=== PATIENT | male | born 1950 | race African-American/Black ===

== ENCOUNTER 2018-04-21 12:57 | Inpatient (IN) | payer MEDICARE, MEDICAID ==
[~2018-04-21] VITALS: Ht 188 cm; Wt 98.4 kg
[~2018-04-21 12:57] MED LIST: CLON0.1T PO; CLON0.2T PO; LOSA50TA20 PO; METF-414 PO; NIFE90TA2 PO
[2018-04-21] MEDS ORDERED: HYDR12.529 MT (13:18)
[2018-04-21] MEDS ORDERED: HYDR-4133 MT (13:18)
[2018-04-21] MEDS ORDERED: ATOR20TA65 MT (13:18)
[2018-04-21] MEDS ORDERED: benazepril (13:18)
[2018-04-21] MEDS ORDERED: ASPI-1159 MT (13:18)
[2018-04-21] MEDS ORDERED: ADENOSINE 3 MG/ML 2ML VIAL IV ONE (13:42)
[2018-04-21] MEDS ORDERED: DILTIAZEM HCL 5MG/ML 5ML VIAL IV ONE ×2 (13:55→14:00)
[2018-04-21] MEDS ORDERED: SODIUM CHLORIDE 0.9% 1,000 ML IV ONE (13:57)
[2018-04-21] MEDS ORDERED: ASPIRIN 325MG EC TABLET PO ONE (14:00)
[2018-04-21 15:00] LABS: BASOPHILS % 0.9 % (0.0-2.0); EOSINOPHILS % 0.3 % (0.0-5.0); HEMATOCRIT. 43.5 % (42.0-52.0); HEMOGLOBIN. 14.4 g/dL (14.0-18.0); LYMPHOCYTES % 35.6 % (20.0-50.0); MEAN CORPUSCULAR VOLUME 90.6 fL (80.0-94.0); MEAN PLATELET VOLUME 10.4 fl (7.4-10.4); MONOCYTES % 4.7 % (2.0-8.0); NEUTROPHILS % 58.5 % (40.0-76.0); PLATELET 436 x1000/uL (130-400); RED CELL DISTRIBUTION WIDTH 14.9 % (11.6-14.6)
[2018-04-21 15:06] LABS: INR 1.2; PROTHROMBIN TIME 11.7 sec (9.1-11.1)
[2018-04-21 15:07] LABS: CHLORIDE 102 mEq/L (98-107)
[2018-04-21 15:11] LABS: ETHANOL BLOOD < 10 mg/dL
[2018-04-21] MEDS ORDERED: KCL 10MEQ/50ML PREMIX 50 ML IV ONE (15:30)
[2018-04-21] MEDS ORDERED: POTASSIUM CHLORIDE 20MEQ TABLET SR PO ONE (15:30)
[2018-04-21] MEDS ORDERED: ACETAMINOPHEN 325MG TABLET PO PRN (17:00)
[2018-04-21] MEDS ORDERED: DOCUSATE SODIUM 100MG CAPSULE PO PRN (17:00)
[2018-04-21] MEDS ORDERED: IPRATROPIUM/ALBUTEROL 0.5-3(2.5)MG/3ML NEB INH PRN (17:00)
[2018-04-21] MEDS ORDERED: MAGNESIUM/ALUMINUM HYDROXIDE/SIMETHICONE 30ML UDC PO PRN (17:00)
[2018-04-21] MEDS ORDERED: HYDROCODONE/ACETAMINOPHEN 5/325MG TABLET PO PRN (17:00)
[2018-04-21] MEDS ORDERED: GUAIFENESIN 200MG/10ML SUGAR FREE UDC PO PRN (17:00)
[2018-04-21] MEDS ORDERED: ONDANSETRON HCL 4MG/2ML INJ IV PRN (17:00)
[2018-04-21 18:09] LABS: PHOSPHORUS 3.3 mg/dL (2.5-4.9)
[2018-04-21 18:51] LABS: CLARITY URINE CLEAR (CLEAR); COLOR URINE YELLOW (YELLOW); KETONES URINE NEGATIVE (NEGATIVE); LEUKOCYTE ESTERASE URINE NEGATIVE (NEGATIVE); NITRITE URINE NEGATIVE (NEGATIVE); OCCULT BLOOD URINE TRACE (NEGATIVE); PROTEIN URINE TRACE (NEGATIVE); SPECIFIC GRAVITY URINE 1.017 (1.005-1.030)
[2018-04-21 19:04] LABS: *AMPHETAMINES SCREEN URINE NEGATIVE (NEGATIVE); *BARBITURATES SCREEN URINE NEGATIVE (NEGATIVE); *BENZODIAZEPINES SCREEN URINE NEGATIVE (NEGATIVE); *COCAINE SCREEN URINE NEGATIVE (NEGATIVE); METHADONE URINE SCREEN NEGATIVE (NEGATIVE); OPIATES URINE SCREEN NEGATIVE (NEGATIVE)
[2018-04-21 19:05] LABS: CANNABINOID URINE SCREEN PRESUMTIVE POSITIVE (NEGATIVE); PHENCYCLIDINE URINE SCREEN NEGATIVE (NEGATIVE)
[2018-04-21] MEDS: CLONIDINE 0.1MG TABLET PO PRN (19:07)
[2018-04-22] VITALS (11 sets, daily range): BP systolic 161–190; BP diastolic 91–110
[2018-04-22] MEDS: DILTIAZEM HCL 60MG TABLET PO SCH ×4 (01:05→17:33)
[2018-04-22] MEDS: CLONIDINE 0.1MG TABLET PO PRN ×3 (01:08→12:12)
[2018-04-22 06:53] LABS: BASOPHILS % 1.1 % (0.0-2.0); EOSINOPHILS % 2.2 % (0.0-5.0); HEMATOCRIT. 40.5 % (42.0-52.0); HEMOGLOBIN. 13.2 g/dL (14.0-18.0); LYMPHOCYTES % 39.7 % (20.0-50.0); MEAN CORPUSCULAR HEMOGLOBIN 29.5 pg (28.0-32.0); MEAN CORPUSCULAR VOLUME 90.1 fL (80.0-94.0); MEAN PLATELET VOLUME 9.8 fl (7.4-10.4); MONOCYTES % 5.7 % (2.0-8.0); NEUTROPHILS % 51.3 % (40.0-76.0); PLATELET 347 x1000/uL (130-400); RED BLOOD CELL COUNT 4.49 mill/uL (4.7-6.1); RED CELL DISTRIBUTION WIDTH 14.8 % (11.6-14.6)
[2018-04-22 07:10] LABS: CHLORIDE 103 mEq/L (98-107)
[2018-04-22 07:22] LABS: CREATINE KINASE 147 IU/L (39-308); HDL CHOLESTEROL 35 mg/dL (40-59)
[2018-04-22 07:41] LABS: LDL CHOLESTEROL 91 mg/dL (5-100)
[2018-04-22] MEDS: ASPIRIN 81MG EC TABLET PO SCH (08:43)
[2018-04-22] MEDS ORDERED: LOSARTAN POTASSIUM 50 MG TABLET PO SCH (09:00)
[2018-04-22] MEDS ORDERED: POTASSIUM CHLORIDE 20MEQ TABLET SR PO NR (09:45)
[2018-04-22] MEDS ORDERED: POTASSIUM CHLORIDE INJ 40 MEQ in DEXT 5% WATER 250 ML IV NR (10:30)
[2018-04-22] MEDS ORDERED: MAGNESIUM 2 G PREMIX 50 ML IV NR (12:00)
[2018-04-22] MEDS: CLONIDINE 0.2MG TABLET PO SCH ×2 (16:00→22:02)
[2018-04-22] MEDS ORDERED: DEXTROSE 50% WATER 50ML SYRINGE IV PRN (17:30)
[2018-04-22] MEDS: LOSARTAN POTASSIUM 50 MG TABLET PO SCH (17:33)
[2018-04-22] MEDS: BLOOD SUGAR DIAGNOSTIC STRIP TEST SCH ×2 (17:40→21:00)
[2018-04-22] MEDS: INSULIN LISPRO 100 UNITS/ML SUBCUT SCH ×2 (17:53→21:00)
[2018-04-22] MEDS: ATORVASTATIN CALCIUM 10MG TABLET PO SCH (22:01)
[2018-04-23] VITALS: BP 139/69
[2018-04-23] MEDS: DILTIAZEM HCL 60MG TABLET PO SCH ×4 (00:18→17:28)
[2018-04-23 04:00] VITALS: BP 163/86
[2018-04-23] MEDS: CLONIDINE 0.2MG TABLET PO SCH ×3 (06:05→21:40)
[2018-04-23] MEDS: BLOOD SUGAR DIAGNOSTIC STRIP TEST SCH ×4 (06:19→21:41)
[2018-04-23 07:16] LABS: CHLORIDE 105 mEq/L (98-107)
[2018-04-23 07:18] LABS: EOSINOPHILS % 1.8 % (0.0-5.0); HEMATOCRIT. 41.8 % (42.0-52.0); HEMOGLOBIN. 13.7 g/dL (14.0-18.0); LYMPHOCYTES % 23.8 % (20.0-50.0); MEAN CORPUSCULAR HEMOGLOBIN 29.9 pg (28.0-32.0); MEAN CORPUSCULAR VOLUME 90.9 fL (80.0-94.0); NEUTROPHILS % 68.4 % (40.0-76.0); PLATELET 325 x1000/uL (130-400); RED BLOOD CELL COUNT 4.59 mill/uL (4.7-6.1); RED CELL DISTRIBUTION WIDTH 15.1 % (11.6-14.6)
[2018-04-23 08:00] VITALS: BP 167/97
[2018-04-23] MEDS: INSULIN LISPRO 100 UNITS/ML SUBCUT SCH ×4 (08:10→21:00)
[2018-04-23] MEDS: LOSARTAN POTASSIUM 50 MG TABLET PO SCH ×2 (09:01→21:40)
[2018-04-23] MEDS: ASPIRIN 81MG EC TABLET PO SCH (09:01)
[2018-04-23] MEDS ORDERED: POTASSIUM CHLORIDE 20MEQ TABLET SR PO NR (10:45)
[2018-04-23] MEDS ORDERED: REGADENOSON 0.4 MG/5 ML IV ONE (11:00)
[2018-04-23 12:00] VITALS: BP 146/86
[2018-04-23 16:00] VITALS: BP 151/71
[2018-04-23] MEDS: HYDRALAZINE HCL 25MG TABLET PO SCH ×2 (16:37→21:41)
[2018-04-23 20:00] VITALS: BP 174/97
[2018-04-23] MEDS: ATORVASTATIN CALCIUM 10MG TABLET PO SCH (21:40)
[2018-04-24 00:11] VITALS: BP 170/95
[2018-04-24] MEDS: DILTIAZEM HCL 60MG TABLET PO SCH ×5 (00:14→23:10)
[2018-04-24 04:00] VITALS: BP 187/89
[2018-04-24] MEDS: HYDRALAZINE HCL 25MG TABLET PO SCH ×3 (06:18→21:07)
[2018-04-24] MEDS: CLONIDINE 0.2MG TABLET PO SCH ×3 (06:18→21:06)
[2018-04-24] MEDS: BLOOD SUGAR DIAGNOSTIC STRIP TEST SCH ×4 (06:19→21:45)
[2018-04-24 06:44] LABS: BASOPHILS % 1.1 % (0.0-2.0); EOSINOPHILS % 2.5 % (0.0-5.0); HEMOGLOBIN. 13.7 g/dL (14.0-18.0); LYMPHOCYTES % 32.4 % (20.0-50.0); MEAN CORPUSCULAR HEMOGLOBIN 30.1 pg (28.0-32.0); MEAN CORPUSCULAR VOLUME 90.3 fL (80.0-94.0); MEAN PLATELET VOLUME 10.1 fl (7.4-10.4); MONOCYTES % 4.9 % (2.0-8.0); NEUTROPHILS % 59.1 % (40.0-76.0); PLATELET 345 x1000/uL (130-400); RED BLOOD CELL COUNT 4.54 mill/uL (4.7-6.1); RED CELL DISTRIBUTION WIDTH 14.8 % (11.6-14.6)
[2018-04-24 07:28] LABS: CHLORIDE 105 mEq/L (98-107)
[2018-04-24] MEDS: INSULIN LISPRO 100 UNITS/ML SUBCUT SCH ×4 (07:58→21:00)
[2018-04-24 08:00] VITALS: BP 160/95
[2018-04-24] MEDS ORDERED: POTASSIUM CHLORIDE 20MEQ TABLET SR PO SCH (08:45)
[2018-04-24] MEDS: LOSARTAN POTASSIUM 50 MG TABLET PO SCH ×2 (09:08→21:06)
[2018-04-24] MEDS: ASPIRIN 81MG EC TABLET PO SCH (09:08)
[2018-04-24] MEDS: NEBIVOLOL HCL 5 MG TABLET PO SCH (09:08)
[2018-04-24 12:00] VITALS: BP 168/99
[2018-04-24 16:00] VITALS: BP 133/85
[2018-04-24 20:00] VITALS: BP 165/100
[2018-04-24] MEDS: ATORVASTATIN CALCIUM 10MG TABLET PO SCH (21:06)
[2018-04-25] VITALS: BP 173/101
[2018-04-25] MEDS: CLONIDINE 0.1MG TABLET PO PRN (01:10)
[2018-04-25 04:00] VITALS: BP 175/106
[2018-04-25] MEDS: CLONIDINE 0.2MG TABLET PO SCH ×2 (05:06→13:14)
[2018-04-25] MEDS: DILTIAZEM HCL 60MG TABLET PO SCH ×2 (05:07→12:52)
[2018-04-25] MEDS: HYDRALAZINE HCL 25MG TABLET PO SCH ×2 (05:07→13:14)
[2018-04-25] MEDS: INSULIN LISPRO 100 UNITS/ML SUBCUT SCH ×2 (05:18→12:52)
[2018-04-25] MEDS: BLOOD SUGAR DIAGNOSTIC STRIP TEST SCH ×2 (05:18→12:40)
[2018-04-25 06:43] LABS: BASOPHILS % 1.1 % (0.0-2.0); EOSINOPHILS % 3.3 % (0.0-5.0); HEMATOCRIT. 39.6 % (42.0-52.0); HEMOGLOBIN. 13.2 g/dL (14.0-18.0); LYMPHOCYTES % 36.2 % (20.0-50.0); MEAN CORPUSCULAR HEMOGLOBIN 30.1 pg (28.0-32.0); MEAN CORPUSCULAR VOLUME 90.1 fL (80.0-94.0); MONOCYTES % 4.9 % (2.0-8.0); NEUTROPHILS % 54.5 % (40.0-76.0); PLATELET 342 x1000/uL (130-400); RED BLOOD CELL COUNT 4.39 mill/uL (4.7-6.1); RED CELL DISTRIBUTION WIDTH 15.1 % (11.6-14.6)
[2018-04-25 07:00] LABS: CHLORIDE 106 mEq/L (98-107)
[2018-04-25 08:00] VITALS: BP 170/111
[2018-04-25] MEDS ORDERED: POTASSIUM CHLORIDE 20MEQ TABLET SR PO SCH (08:00)
[2018-04-25] MEDS: LOSARTAN POTASSIUM 50 MG TABLET PO SCH (08:19)
[2018-04-25] MEDS: ASPIRIN 81MG EC TABLET PO SCH (08:20)
[2018-04-25] MEDS: NEBIVOLOL HCL 5 MG TABLET PO SCH (08:20)
[2018-04-25] MEDS ORDERED: LORAZEPAM 2MG/ML CPJ IV PRN (11:30)
[2018-04-25 12:00] VITALS: BP 172/99
[2018-04-25] MEDS ORDERED: CLON0.2T12 PO (15:41)
[2018-04-25] MEDS ORDERED: DILT60TA35 PO (15:41)
[2018-04-25] MEDS ORDERED: HYDR-4134 PO (15:41)
[2018-04-25] MEDS ORDERED: LOSA50TA3 PO (15:41)
[2018-04-25] MEDS ORDERED: NEBI5TAB3 PO (15:41)
[2018-04-25 16:00] VITALS: BP 153/88
[2018-04-25 17:56] VITALS: BP 153/88
== END 2018-04-25 18:31 | disposition home or self-care (01) | DRG 308 ==
LOC: ER 12:57 → 7WST 15:53 → EDBEDREQ 16:06 → ENRESERV 22:45
PROVIDERS: ADMIT Internal Medicine; ATTEND Internal Medicine
DX: I47.1 Supraventricular tachycardia (principal); N17.0 Acute kidney failure with tubular necrosis; I13.0 Hypertensive heart and chronic kidney disease with heart failure and stage 1 through stage 4 chronic kidney disease, or unspecified chronic kidney disease; E78.5 Hyperlipidemia, unspecified; Z79.4 Long term (current) use of insulin; E87.6 Hypokalemia; E78.00 Pure hypercholesterolemia, unspecified; H91.90 Unspecified hearing loss, unspecified ear; Z82.49 Family history of ischemic heart disease and other diseases of the circulatory system; Z86.73 Personal history of transient ischemic attack (TIA), and cerebral infarction without residual deficits; N18.9 Chronic kidney disease, unspecified; I50.9 Heart failure, unspecified; E11.22 Type 2 diabetes mellitus with diabetic chronic kidney disease; Z53.20 Procedure and treatment not carried out because of patient's decision for unspecified reasons; Z79.82 Long term (current) use of aspirin; Z79.899 Other long term (current) drug therapy
CPT/HCPCS: 36415; 71045; 80048; 80061; 80305; 80320; 82550; 82962; 83036; 83605; 83735; 83880; 84100; 84443; 84484; 93005; 93306; 93970; 99291; J0153; J3475; J3480; J3490; J7030; J7050; J7060; G0480

== ENCOUNTER 2018-07-05 12:48 | Inpatient (IN) | payer MEDICARE, MEDICAID ==
[~2018-07-05] VITALS: Ht 188 cm; Wt 97.5 kg
[~2018-07-05 12:48] MED LIST changes: +ASPI-1159 MT; +ATOR20TA65 MT; -CLON0.1T PO; -CLON0.2T PO; +CLON0.2T12 PO; +DILT60TA35 PO; +HYDR-4134 PO; -LOSA50TA20 PO; +LOSA50TA3 PO; +NEBI5TAB3 PO; -NIFE90TA2 PO
[2018-07-05 14:08] LABS: BASOPHILS % 0.9 % (0.0-2.0); EOSINOPHILS % 1.2 % (0.0-5.0); HEMATOCRIT. 42.4 % (42.0-52.0); HEMOGLOBIN. 14.1 g/dL (14.0-18.0); LYMPHOCYTES % 39.1 % (20.0-50.0); MEAN PLATELET VOLUME 9.4 fl (7.4-10.4); MONOCYTES % 4.9 % (2.0-8.0); NEUTROPHILS % 53.9 % (40.0-76.0); PLATELET 285 x1000/uL (130-400); RED BLOOD CELL COUNT 4.71 mill/uL (4.7-6.1); RED CELL DISTRIBUTION WIDTH 15.1 % (11.6-14.6)
[2018-07-05 14:36] LABS: CHLORIDE 106 mEq/L (98-107)
[2018-07-05] MEDS ORDERED: HYDRALAZINE 20MG/ML VIAL IV ONE (15:15)
[2018-07-05] MEDS ORDERED: ASPIRIN 325MG EC TABLET PO ONE (16:00)
[2018-07-05] MEDS ORDERED: GUAIFENESIN 200MG/10ML SUGAR FREE UDC PO PRN (17:00)
[2018-07-05] MEDS ORDERED: MAGNESIUM/ALUMINUM HYDROXIDE/SIMETHICONE 30ML UDC PO PRN (17:00)
[2018-07-05] MEDS ORDERED: CLONIDINE 0.1MG TABLET PO PRN (17:00)
[2018-07-05] MEDS ORDERED: ACETAMINOPHEN 325MG TABLET PO PRN (17:00)
[2018-07-05] MEDS ORDERED: HALOPERIDOL LACTATE 5MG/ML VIAL IM PRN (17:00)
[2018-07-05] MEDS ORDERED: NITROGLYCERIN 0.4MG TABLET SL SL PRN (17:00)
[2018-07-05] MEDS ORDERED: TRAMADOL 50MG TABLET PO PRN (17:00)
[2018-07-05] MEDS ORDERED: DOCUSATE SODIUM 100MG CAPSULE PO PRN (17:00)
[2018-07-05] MEDS ORDERED: ONDANSETRON HCL 4MG/2ML INJ IV PRN (17:00)
[2018-07-05] MEDS ORDERED: IPRATROPIUM/ALBUTEROL 0.5-3(2.5)MG/3ML NEB INH PRN (17:00)
[2018-07-05] MEDS ORDERED: LORAZEPAM 0.5MG TABLET PO PRN (17:00)
[2018-07-05 19:00] VITALS: BP 216/103
[2018-07-05 19:30] VITALS: BP 211/100
[2018-07-05] MEDS: LOSARTAN POTASSIUM 100 MG TABLET PO SCH (19:46)
[2018-07-05 20:00] VITALS: BP 211/100
[2018-07-05] MEDS ORDERED: POTASSIUM CHLORIDE 20MEQ TABLET SR PO NR (20:00)
[2018-07-05] MEDS ORDERED: ENOXAPARIN 40MG/0.4ML SYR SUBCUT SCH (20:00)
[2018-07-05] MEDS ORDERED: ZOLPIDEM TARTRATE 5MG TABLET PO PRN (21:00)
[2018-07-05] MEDS: CLONIDINE 0.2MG TABLET PO SCH (22:08)
[2018-07-05] MEDS: HYDRALAZINE HCL 100MG TABLET PO SCH (22:08)
[2018-07-06] VITALS: BP 149/85
[2018-07-06 04:00] VITALS: BP 161/84
[2018-07-06] MEDS: HYDRALAZINE HCL 100MG TABLET PO SCH (05:06)
[2018-07-06] MEDS: CLONIDINE 0.2MG TABLET PO SCH (05:07)
[2018-07-06 06:44] LABS: BASOPHILS % 0.7 % (0.0-2.0); EOSINOPHILS % 1.5 % (0.0-5.0); HEMATOCRIT. 41.3 % (42.0-52.0); HEMOGLOBIN. 13.8 g/dL (14.0-18.0); LYMPHOCYTES % 36.1 % (20.0-50.0); MEAN CORPUSCULAR HEMOGLOBIN 29.5 pg (28.0-32.0); MEAN CORPUSCULAR VOLUME 88.3 fL (80.0-94.0); MEAN PLATELET VOLUME 9.6 fl (7.4-10.4); MONOCYTES % 6.5 % (2.0-8.0); NEUTROPHILS % 55.2 % (40.0-76.0); PLATELET 307 x1000/uL (130-400); RED BLOOD CELL COUNT 4.67 mill/uL (4.7-6.1); RED CELL DISTRIBUTION WIDTH 14.9 % (11.6-14.6)
[2018-07-06 07:12] LABS: CHLORIDE 106 mEq/L (98-107)
[2018-07-06] MEDS ORDERED: ASPIRIN 325MG EC TABLET PO SCH (09:00)
[2018-07-06] MEDS ORDERED: DILTIAZEM HCL 300MG CAPSULE SR 24HR PO SCH (09:00)
[2018-07-06] MEDS ORDERED: NEBIVOLOL HCL 5 MG TABLET PO SCH (09:00)
[2018-07-06] MEDS: LOSARTAN POTASSIUM 100 MG TABLET PO SCH (09:33)
[2018-07-06] MEDS ORDERED: MINOXIDIL 2.5MG TABLET PO SCH (10:45)
[2018-07-06 12:22] VITALS: BP 183/99
== END 2018-07-06 14:21 | disposition home or self-care (01) | DRG 313 ==
LOC: ER 12:48 → 6WST 16:21 → EDBEDREQ 16:25 → EDBEDREQTM 16:25 → ENRESERV 17:38 → 6WST 19:17
PROVIDERS: ADMIT Internal Medicine; ATTEND Internal Medicine
DX: R07.89 Other chest pain (principal); I50.32 Chronic diastolic (congestive) heart failure; I47.1 Supraventricular tachycardia; E11.9 Type 2 diabetes mellitus without complications; E78.5 Hyperlipidemia, unspecified; E87.6 Hypokalemia; F79 Unspecified intellectual disabilities; H91.90 Unspecified hearing loss, unspecified ear; I11.0 Hypertensive heart disease with heart failure; I25.10 Atherosclerotic heart disease of native coronary artery without angina pectoris; R62.50 Unspecified lack of expected normal physiological development in childhood; Z86.73 Personal history of transient ischemic attack (TIA), and cerebral infarction without residual deficits; Z79.82 Long term (current) use of aspirin; Z79.84 Long term (current) use of oral hypoglycemic drugs; Z79.899 Other long term (current) drug therapy
CPT/HCPCS: 36415; 71045; 80048; 80061; 83036; 83735; 83880; 84484; 93005; 96374; 99291; J0360; J1650